=== PATIENT | male | born 1975 | race Caucasian/White ===

== ENCOUNTER 2021-12-20 13:10 | Emergency (ER) | payer BC, OTHER ==
[~2021-12-20] VITALS: Ht 175.3 cm; Wt 79.4 kg
[2021-12-20 13:49] LABS: BASOPHILS % 0.6 % (0.0-1.0); EOSINOPHILS # (AUTO) 0.2 (0.0-0.4); EOSINOPHILS % 2.7 % (0.0-6.0); HEMATOCRIT 47.7 % (38.2-49.6); HEMOGLOBIN 15.6 g/dL (14.0-18.0); LYMPHOCYTES # (AUTO) 1.6 (1.0-3.2); LYMPHOCYTES % 23.9 % (18.0-39.1); MEAN CORPUSCULAR HEMOGLOBIN 30.1 pg (28-32); MEAN CORPUSCULAR HGB CONC 32.7 g/dL (31-35); MEAN CORPUSCULAR VOLUME 92.1 fL (81-99); MONOCYTES # (AUTO) 0.6 (0.2-0.8); MONOCYTES % 8.5 % (4.4-11.3); NEUTROPHILS # (AUTO) 4.3 (2.1-6.9); NEUTROPHILS % 64.2 % (38.7-80.0); PLATELET COUNT 241 x10e3/uL (140-360); RED BLOOD COUNT 5.18 x10e6/uL (4.3-5.7); RED CELL DISTRIBUTION WIDTH 12.4 % (11.7-14.4)
[2021-12-20 13:59] LABS: CLARITY,URINE CLOUDY (CLEAR); COLOR,URINE YELLOW (YELLOW); KETONES,URINE TRACE (NEGATIVE); LEUKOCYTE ESTERASE ,URINE NEGATIVE (NEGATIVE); NITRITE,URINE NEGATIVE (NEGATIVE); PROTEIN,URINE DIPSTICK 1+ (NEGATIVE)
[2021-12-20 14:00] LABS: URINE UROBILINOGEN 0.2 mg/dL (0.2 - 1)
[2021-12-20 14:08] LABS: BACTERIA,URINE MANY /HPF; EPITHELIAL CELLS,URINE FEW /LPF; RBC,URINE >50 /HPF (0-5)
[2021-12-20 14:09] LABS: INR 0.91; PROTHROMBIN TIME 13.1 seconds (11.9-14.5)
[2021-12-20 14:18] LABS: ALBUMIN/GLOBULIN RATIO 1.1 (0.8-2.0); ANION GAP 13.9 mmol/L (8-16); CALCIUM 9.3 mg/dL (8.4-10.2); CREATININE, SERUM 1.03 mg/dL (0.72-1.25); POTASSIUM 3.9 mmol/L (3.5-5.1)
[2021-12-20] MEDS ORDERED: CEFDINIR300 MG PO (15:28)
[2021-12-20] MEDS ORDERED: KETOROLAC TROME10 MG PO (15:38)
[2021-12-20] MEDS ORDERED: FLOMAX0.4 MG PO (15:38)
[2021-12-20 15:48] VITALS: BP 132/84
== END 2021-12-20 15:49 | disposition home or self-care (01) ==
LOC: ER 13:14
DX: N50.819 Testicular pain, unspecified (principal); N20.2 Calculus of kidney with calculus of ureter; N39.0 Urinary tract infection, site not specified; M25.552 Pain in left hip; K76.9 Liver disease, unspecified
CPT/HCPCS: 36415; 74176; 76870; 80053; 81001; 85025; 85610; 87086; 93976; 99284

== ENCOUNTER 2021-12-22 11:11 | Emergency (ER) | payer BC ==
[~2021-12-22] VITALS: Ht 175.3 cm; Wt 79.4 kg
[~2021-12-22 11:11] MED LIST: CEFDINIR300 MG PO; FLOMAX0.4 MG PO; KETOROLAC TROME10 MG PO
[2021-12-22] MEDS ORDERED: ONDANSETRON HCL 4 MG ORAL DISINTEGRATING TAB PO ONE (11:30)
[2021-12-22] MEDS ORDERED: HYDROCODONE/APAP 5MG-325MG TAB PO ONE (11:30)
[2021-12-22] MEDS ORDERED: FENTANYL CITRATE/PF 100MCG/2 ML INJ IV PRN (11:45)
[2021-12-22] MEDS ORDERED: HYDROCODON-ACE1 EA11 PO (12:58)
[2021-12-22] MEDS ORDERED: ONDANSETRON ODT4 MG PO (13:00)
== END 2021-12-22 13:32 | disposition home or self-care (01) ==
LOC: ER 11:23
DX: R10.31 Right lower quadrant pain (principal); I87.8 Other specified disorders of veins; R53.1 Weakness
CPT/HCPCS: 74018; 99284; J3010; Q0162

== ENCOUNTER 2024-11-18 08:08 | Emergency (ER) | payer BC ==
[~2024-11-18] VITALS: Ht 175.3 cm; Wt 79.4 kg
[~2024-11-18 08:08] MED LIST changes: +HYDROCODON-ACE1 EA11 PO; +ONDANSETRON ODT4 MG PO
[2024-11-18 08:20] VITALS: TEMP 97.4
[2024-11-18] MEDS: ONDANSETRON HCL INJ 2MG/ML 2ML 2 MG/ML VIAL IV STA (08:55)
[2024-11-18] MEDS: SODIUM CHLORIDE 0.9% 1000ML 1,000 ML IV STA (08:55)
[2024-11-18] MEDS: KETOROLAC TROMETHAMINE 30 MG/ML VIAL IV STA (08:55)
[2024-11-18] MEDS: METOCLOPRAMIDE HCL 10 MG/2ML VIAL IV ONE (08:56)
[2024-11-18] MEDS: DIPHENHYDRAMINE HCL INJ 50 MG/ML VIAL IV ONE (08:56)
[2024-11-18] MEDS: VALPROATE SOD INJ 500 MG in SODIUM CHLORIDE 0.9% 100 ML IV SCH (09:00)
[2024-11-18] MEDS ORDERED: ONDANSETRON ODT4 MG PO (09:47)
[2024-11-18] MEDS ORDERED: IMITREX25 MG PO (09:47)
[2024-11-18 10:00] VITALS: PULSE 77; RESP 16; O2SAT 100
== END 2024-11-18 10:00 | disposition home or self-care (01) ==
LOC: ER 08:18
DX: G43.909 Migraine, unspecified, not intractable, without status migrainosus (principal); Z87.442 Personal history of urinary calculi
CPT/HCPCS: 99283; J1200; J1885; J2405; J2765; J7030; J7050